=== PATIENT | female | born 1960 | race Caucasian/White ===

== ENCOUNTER 2025-07-15 14:40 | Emergency (ER) | payer MEDICAID, SELFPAY ==
--- NOTE | ~2025-07-15 | XR_ITS ---
EXAMINATION: XR chest 2V, 07/15/2025 15:39 CDT HISTORY: cough/sob COMPARISON: No comparisons available. Technique: 2 views obtained. Findings: COPD changes. Small right basilar infiltrate. Small right middle lobe infiltrate. No pneumothorax. Heart is normal size. Mediastinal and hilar contours are within normal limits. Bony thorax no acute abnormality. Impression: Early right-sided pneumonia. Reviewed, dictated and finalized at location P. Impression: Early right-sided pneumonia.
--- NOTE | ~2025-07-15 | US_ITS ---
EXAMINATION: US venous doppler [facility], 07/15/2025 15:40 CDT HISTORY: balta. leg swelling/pain COMPARISON: None Technique: Brown-scale and color Doppler images were attempted of the lower saphenofemoral junction, common femoral vein,superficial femoral vein, proximal deep femoral vein, proximal deep femoral vein, popliteal vein and posterior tibial veins. Findings: Deep Venous System:Normal flow, augmentation and compressibility. No echogenic thrombus identified. Superficial Venous SystemNo superficial thrombophlebitis. Soft tissues: Soft tissues demonstrate enlarged lymph nodes in the inguinal regions bilaterally probably reactive, follow-up suggested as clinically warranted Impression: Negative for DVT. Reviewed, dictated and finalized at location P. Impression: Negative for DVT.
[2025-07-15 14:38] VITALS: BP 151/86; PULSE 72; RESP 19; TEMP 36.9; O2SAT 100
--- NOTE | 2025-07-15 14:46 | ED_ITS ---
HPI - Extremity Problem General Chief complaint: Extremity Problem,Nontraumatic Stated complaint: BLE swelling/redness/pain Time Seen by Provider: 07/15/25 14:52 Source: patient Mode of arrival: ambulatory Limitations: no limitations History of Present Illness HPI Narrative: Polly is a 64-year-old female patient presenting to the clinic today with complaints of bilateral lower extremity swelling, redness, and pain times 3-4 days. States it feels as the pain is down into the bone. Reports she has had some chills but no known fever. Denies any chest pain or increased shortness of breath. History of emphysema/COPD. SpO2 is 100% on room air-no retractions Related Data Allergies Allergy/AdvReac Type Severity Reaction Status Date / Time No Known Allergies Allergy Verified 07/15/25 16:04 Review of Systems 2 Review of Systems: Pertinent positives per HPI. Patient denies any fever, chills, rash, headache, visual changes, dizziness, cough, runny nose, sore throat, shortness of breath, chest pain, palpitations, nausea, vomiting, diarrhea, constipation, abdominal pain, or any urinary issues. PMFSH Comments At the time of my signature, I reviewed and agree with the nursing past medical, surgical, social, and family history. There is no relevant family history pertinent to the patient complaint. Exam 2 Narrative: General: Well-developed, chronically ill-appearing, poor hygiene Head: Normocephalic, atraumatic. Cardio: Regular rate and rhythm, s1 and s2 normal, no murmur appreciated. Resp: Expiratory wheezing, no rhonchi, rales, or rubs. Extremities: No deformity, 1+ pitting bilateral lower extremities with circumferential redness/induration, no cyanosis, capillary refill less than 2 seconds, peripheral pulses palpable and strong. Course Course Emergency Course: Portions of this record may have been created with voice recognition software. Vital Signs Vital signs: Vital Signs Temperature 36.9 C 07/15/25 14:38 Pulse Rate 72 07/15/25 14:38 Respiratory Rate 19 07/15/25 14:38 Blood Pressure 151/86 H 07/15/25 14:38 Pulse Oximetry 100 07/15/25 14:38 Oxygen Delivery Room Air 07/15/25 14:38 Temperature 36.9 C 07/15/25 14:38 Pulse Rate 73 07/15/25 17:15 Respiratory Rate 13 07/15/25 17:15 Blood Pressure 154/85 H 07/15/25 17:15 Pulse Oximetry 98 07/15/25 17:15 Oxygen Delivery Room Air 07/15/25 14:38 Vital signs reviewed MDM - Extremity (Nontraumatic) MDM Narrative Medical decision making narrative: At the time of visit patient is resting comfortably on the exam table. Patient appears to be nontoxic. Complaints of bilateral lower extremity swelling, redness, and pain times 3-4 days. States it feels as the pain is down into the bone. Reports she has had some chills but no known fever. Denies any chest pain but states she is always short of breath. History of emphysema/COPD. SpO2 is 100% on room air-no retractions EKG: EKG shows sinus rhythm with a first-degree heart block. Heart rate 71. No ST elevation, depression, or T-wave inversion Labs: CBC shows white blood cell count 9.8, H&H of 14.6 and 45.2, platelet counts 412, anti coagulation studies within normal limits, chemistry shows sodium 138, potassium of 4.0, chloride 103, carbon dioxide 28, BUN of 3, creatinine 0.55, GFR is greater than 60, AST 39, ALT is 36, alk-phos 74, C reactive protein is less than 0.5 Diagnostics: Chest x-ray shows possible early right-sided middle and lower lobe pneumonia, venous Doppler studies negative for any DVT does show some reactive inguinal lymph nodes Medications: Morphine 2 mg IV given for pain, Ancef 2 g IV piggyback given for cellulitis Plan: I suspect patient has bilateral lower extremity cellulitis. Possible early right-sided pneumonia. Patient is not reporting any increased shortness of breath or productive cough. Feels though patient is appropriate for outpatient treatment. Prescription for cephalexin was prescribed. Patient should return if she is having any increased shortness of breath, fever, chest pain, or any other concerning symptoms. Supportive measures were discussed with the patient and they voiced understanding discharge instructions and agrees to treatment plan. Return precautions reviewed Differential Diagnosis Differential diagnosis: Likely gout, cellulitis, superficial thrombophlebitis, lower extremity edema, deep vein thrombosis of lower extremity and other (Congestive heart failure) Lab Data 07/15/25 16:29 07/15/25 16:29 Labs: Lab Results 07/15/25 07/15/25 07/15/25 Range/Units 14:55 16:29 16:53 WBC 9.8 (4.5-10.0) K/mm3 RBC 4.53 (4.2-5.4) M/mm3 Hgb 14.6 (12.0-15.0) g/dL Hct 45.2 (37.0-47.0) % MCV 99.8 (80-100) fl MCH 32.2 (26-34) pg MCHC 32.3 (32-36) g/dl RDW 13.1 (11.5-14.5) % Plt Count 412 H (150-375) k/mm3 MPV 8.7 (7.4-10.4) fl Immature Gran % (Auto) 0.7 H (0-0.5) % Neut % (Auto) 52.7 (45.5-73.1) % Lymph % (Auto) 30.4 (18.3-44.2) % Scurry % (Auto) 12.7 H (2.6-8.5) % Eos % (Auto) 2.6 (0-4.4) % Baso % (Auto) 0.9 (0.2-1.2) % Lymph # (Auto) 2.98 (0.9-3.2) K/mm3 Scurry # (Auto) 1.2 H (0.1-0.6) K/mm3 Eos # (Auto) 0.3 (0-0.3) K/mm3 Baso # (Auto) 0.1 (0.0-0.1) K/mm3 Abs Immat Gran (auto) 0.07 H (0.00-0.031) K/mm3 Absolute Neuts (auto) 5.2 (1.3-6.7) K/mm3 Absolute Nucleated RBC 0.000 (0.0-0.012) K/mm3 Nucleated RBC % 0.0 (0.0-0.2) % PT 13.0 (11.1-14.7) Seconds INR 1.0 APTT 32.8 (22.3-36.8) Seconds Sodium 138 (137-145) mmol/L Potassium 4.0 (3.4-5.0) mmol/L Chloride 103 (98-107) mmol/L Carbon Dioxide 28 (22-30) mmol/L Anion Gap 7 (4-12) mmol/L BUN 3 L (7-17) mg/dL Creatinine 0.55 L (0.7-1.0) mg/dL Estim Creat Clear Calc 75 ml/min Estimated GFR > 60 (59 - ) Glucose 100 (65-110) mg/dL POC Capillary Glucose 84 (65-105) mg/dl Lactic Acid 1.8 (0.7-2.0) mmol/L Calcium 9.3 (8.4-10.2) mg/dL Total Bilirubin 0.7 (0.2-1.3) mg/dL AST 39 H (14-36) U/L ALT 36 H (6-35) U/L Alkaline Phosphatase 74 (38-126) U/L C-Reactive Protein < 0.5 (<1.0) mg/dL Total Protein 7.6 (6.3-8.2) g/dL Albumin 4.4 (3.5-5.1) g/dL Discharge Plan Discharge Clinical Impression: Cellulitis Qualifiers: Site of cellulitis: extremity Site of cellulitis of extremity: lower extremity Laterality: unspecified laterality Qualified Code(s): L03.119 - Cellulitis of unspecified part of limb Patient Disposition: Home Condition: Stable Instructions: Antibiotic Form, Cellulitis (ED) Additional Instructions: Take cephalexin as prescribed Increase fluids and stay well hydrated Keep legs elevated to help with swelling May take Tylenol/Motrin as needed for pain as per bottle directions Follow-up with your primary care doctor in 3-5 days for follow-up Return to the emergency room if symptoms worse-increase in shortness of breath, chest pain, high fever not controlled by Tylenol or Motrin, increase in leg swelling, increase in redness, or any other concerning symptoms. Patient Language: Vincentian Prescriptions: New cephalexin 500 mg capsule 500 mg PO Q8H 10 Days Qty: 30 0RF Follow-up/Referrals: Shara,Corbin Rolle MD [Primary Care Provider, Unknown] Time of Disposition: 18:15 Quality NIHSS Nursing Documentation ED NIHSS nursing documentation: reviewed/agree
[2025-07-15 14:49] VITALS: BP 151/86; PULSE 73; RESP 15; O2SAT 100
--- NOTE | 2025-07-15 14:52 | ECG_ITS ---
Test Date: 2025-07-15 15:57:15 Measurements Intervals Ed[place] Rate: 71 P: 47 CO: 228 QRS: -9 QRSD: 93 T: 32 QT: 396 QTc: 433 Interpretive Statements SINUS RHYTHM WITH FIRST DEGREE AV BLOCK BASELINE ARTIFACT- I, II, III, AVR, AVL, AVF, V1-V6 BORDERLINE ECG No previous ECG available for comparison Electronically Signed On 07-15-2025 16:12:30 CDT by Darrel Newman D.O.
--- NOTE | 2025-07-15 15:29 | PC.NURSE ---
ekg and bloodwork not obtained at this time, pt in ultrasound.
[2025-07-15 16:00] VITALS: BP 148/80; BP 151/86; PULSE 65; PULSE 68; RESP 15; RESP 19; O2SAT 100; O2SAT 88
[2025-07-15 16:30] VITALS: BP 151/87; PULSE 70; RESP 21; O2SAT 99
[2025-07-15] MEDS: MORPHINE SULFATE (*CRX) 4 MG/ML INJ 2 MG IV PUSH (16:30)
[2025-07-15 16:55] LABS: Alanine Aminotransferase 36 U/L (6-35); Albumin Level 4.4 g/dL (3.5-5.1); Alkaline Phosphatase 74 U/L (38-126); Anion Gap 7 mmol/L (4-12); Aspartate Amino Transferase 39 U/L (14-36); Bilirubin,Total 0.7 mg/dL (0.2-1.3); Blood Urea Nitrogen 3 mg/dL (7-17); CRP < 0.5 mg/dL (<1.0); Calcium 9.3 mg/dL (8.4-10.2); Carbon Dioxide 28 mmol/L (22-30); Chloride 103 mmol/L (98-107); Estimated CRCL calculation 75 ml/min; Estimated Glomerular Filt Rate > 60; Glucose 100 mg/dL (65-110); Potassium 4.0 mmol/L (3.4-5.0); Sodium 138 mmol/L (137-145); Total Protein 7.6 g/dL (6.3-8.2)
[2025-07-15 17:00] VITALS: BP 147/79; PULSE 82; RESP 12; O2SAT 99
[2025-07-15 17:08] LABS: Hematocrit 45.2 % (37.0-47.0); Hemoglobin 14.6 g/dL (12.0-15.0); Immature Granulocyte Percent A 0.7 % (0-0.5); Lymphocytes Absolute Auto 2.98 K/mm3 (0.9-3.2); Mean Corpuscular HGB Conc 32.3 g/dl (32-36); Mean Corpuscular Hemoglobin 32.2 pg (26-34); Mean Corpuscular Volume 99.8 fl (80-100); Nucleated Red Blood Cells Absolute Auto 0.000 K/mm3 (0.0-0.012); Nucleated Red Blood Cells Perc 0.0 % (0.0-0.2); Platelet Count Result 412 k/mm3 (150-375); Red Blood Count 4.53 M/mm3 (4.2-5.4); White Blood Count 9.8 K/mm3 (4.5-10.0)
[2025-07-15 17:15] VITALS: BP 154/85; PULSE 73; RESP 13; O2SAT 98
[2025-07-15 17:19] LABS: INR 1.0; Prothrombin Time 13.0 Seconds (11.1-14.7)
[2025-07-15 17:20] LABS: Partial Thromboplastin Time 32.8 Seconds (22.3-36.8)
[2025-07-15] MEDS: ceFAZolin 2 GM in SODIUM CHLORIDE 0.9% IV 50 ML 100 ML IVPB (18:00)
== END 2025-07-15 18:46 | disposition home or self-care (01) ==
PROVIDERS: Emergency Provider Nurse Practitioner Family; PCP Internal Medicine
DX: L03.115 Cellulitis of right lower limb (principal); L03.116 Cellulitis of left lower limb
CPT/HCPCS: 36415; 71046; 80053; 82948; 83605; 85025; 85610; 85730; 86140; 93005; 93970; 96365; 96375; 99284; J0690; J2270